=== PATIENT | female | born 1975 | race Caucasian/White ===

== ENCOUNTER 2018-04-29 19:56 | Emergency (ER) | payer BC ==
[2018-04-29 20:04] VITALS: BP 138/94; PULSE 81; TEMP 97.6; BMI 28.7
--- NOTE | 2018-04-29 20:27 | PDOC ---
History of Present Illness - General History Source: Patient Exam Limitations: No Limitations - History of Present Illness Initial Comments: 04/29/18 20:24 A portion of this note was documented by scribe services under my direction. I have reviewed the details of the note, within reason, and agree with the documentation with the following case summary and management plan written by me. Patient treated in the ED. Nursing notes are reviewed and incorporated into the medical decision-making. Vital signs reviewed. Procedure note Laceration was cleaned with peroxide and closed with Dermabond patient tolerated well <RadhaHosonidoheatherMary Alicechristophmarielleheather I - Last Filed: 04/29/18 20:24> - General History Source: Patient Exam Limitations: No Limitations - History of Present Illness Initial Comments: 04/29/18 20:50 The patient is a 43 year old female with no significant PMH who presents to the emergency department with a right index finger laceration since earlier this morning. The patient reports that she was using her kitchen knife this morning at about 11am when she accidentally sliced her finger. The patient reports that she cleaned the site and put gauze and a band aide but states that her lac kept opening and bleeding. The patient denies any weakness, numbness or tingling sensation . she denies any other symptoms or complaints. PAST MEDICAL HISTORY: no significant history PAST SURGICAL HISTORY: no significant history FAMILY HISTORY: no pertinent history SOCIAL HISTORY: Pt lives with family and is employed. MEDICATIONS: reviewed ALLERGIES: As per nursing notes General: No fevers or chills, no weakness, no weight loss HEENT: No change in vision. No sore throat,. No ear pain CardioVascular: No chest pain or shortness of breath Respiratory:No cough, or wheezing. Gastrointestinal: no nausea, vomiting, diarrhea or constipation, No rectal bleeding Genitourinary: No dysuria, hematuria, or frequency Musculoskeletal:(+)right finger laceration. No joint or muscle pain or swelling Neurologic: No headache, vertigo, dizziness or loss of consciousness Psychiatric: nor depression Skin: No rashes or easy bruising Endocrine: no increased thirst or abnormal weight change Allergic: no skin or latex allergy All other systems reviewed and normal GENERAL: The patient is awake, alert, and fully oriented, in no acute distress. HEAD: Normal with no signs of trauma. EYES: Pupils equal, round and reactive to light, extraocular movements intact, sclera anicteric, conjunctiva clear. EXTREMITIES: (+)superficial 1.5 cm lac of the lateral aspect of middle phalanx of right index finger. No active bleeding. Neurovascular intact. Normal range of motion, no edema. NEUROLOGICAL: Normal speech, normal gait. PSYCH: Normal mood, normal affect. SKIN: Warm, Dry, normal turgor, no rashes or lesions noted. <Jude Mcgrath - Last Filed: 04/29/18 20:50> - General Chief Complaint: Laceration Stated Complaint: RIGHT INDEX LACERATION Time Seen by Provider: 04/29/18 20:00 Past History - Past Medical History COPD: No Other medical history: Pt denies - Suicide/Smoking/Psychosocial Hx Smoking History: Never smoked Have you smoked in the past 12 months: No Information on smoking cessation initiated: No Hx Alcohol Use: No Drug/Substance Use Hx: No <Denzel Courtney I - Last Filed: 04/29/18 20:24> <Jude Mcgrath - Last Filed: 04/29/18 20:50> - Past Medical History Allergies/Adverse Reactions: Allergies Allergy/AdvReac Type Severity Reaction Status Date / Time Penicillins Allergy Severe Hives Verified 04/29/18 19:58 Home Medications: Ambulatory Orders NK [No Known Home Medication] 04/29/18 *Physical Exam - Vital Signs Last Vital Signs Temp Pulse Resp BP Pulse Ox 97.6 F 81 18 138/94 97 04/29/18 19:58 04/29/18 19:58 04/29/18 19:58 04/29/18 19:58 04/29/18 19:58 <Denzel Courtney I - Last Filed: 04/29/18 20:24> - Vital Signs Last Vital Signs Temp Pulse Resp BP Pulse Ox 97.6 F 81 18 138/94 97 04/29/18 19:58 04/29/18 19:58 04/29/18 19:58 04/29/18 19:58 04/29/18 19:58 <Jude Mcgrath - Last Filed: 04/29/18 20:50> Moderate Sedation - Procedure Monitoring Vital Signs: Procedure Monitoring Vital Signs Temperature 97.6 F 04/29/18 19:58 Pulse Rate 81 03/20/19 19:58 Respiratory Rate 18 04/29/18 19:58 Blood Pressure 138/94 04/29/18 19:58 O2 Sat by Pulse Oximetry (%) 97 04/29/18 19:58 <Denzel Courtney I - Last Filed: 04/29/18 20:24> - Procedure Monitoring Vital Signs: Procedure Monitoring Vital Signs Temperature 97.6 F 04/29/18 19:58 Pulse Rate 81 04/29/18 19:58 Respiratory Rate 18 04/29/18 19:58 Blood Pressure 138/94 04/29/18 19:58 O2 Sat by Pulse Oximetry (%) 97 04/29/18 19:58 <Jude Mcgrath - Last Filed: 04/29/18 20:50> *DC/Admit/Observation/Transfer - Discharge Dispostion Decision to Admit order: No <Denzel Courtney I - Last Filed: 04/29/18 20:24> - Attestations Scribe Attestion: 04/29/18 20:50 Documentation prepared by Jude Mcgrath, acting as medical coding specialist for Denzel Courtney MD. <Jude Mcgrath - Last Filed: 04/29/18 20:50> Diagnosis at time of Disposition: Laceration of right index finger Qualifiers: Encounter type: initial encounter Damage to nail status: without damage Foreign body presence: without foreign body Qualified Code(s): S61.210A - Laceration without foreign body of right index finger without damage to nail, initial encounter - Discharge Dispostion Disposition: HOME - Patient Instructions Printed Discharge Instructions: DI for Laceration Repair, DI for Laceration Repair With Dermabond Additional Instructions: Read over and follow Dermabond instructions. Return to the emergency department immediately with ANY new, persistent or worsening symptoms. Continue any medications as previously prescribed by your physician. You should follow up with your primary doctor as soon as possible regarding today's emergency department visit. . Please make sure your doctor reviews the results of your emergency evaluation. Thank you for coming to the Emergency Department today for your care. It was a pleasure to see you today. Please note that your evaluation is INCOMPLETE until you follow-up with your doctor.
[2018-04-29] MEDS ORDERED: DIPHTH,PERTUSS(ACELL),TET 0.5 ML DISP.SYRIN IM ONE ×2 (20:47→20:49)
== END 2018-04-29 21:07 | disposition home or self-care (01) ==
LOC: FER 19:56
PROC: 0HQFXZZ Repair Right Hand Skin, External Approach (ICD-10-PCS; principal; 2018-04-29)
DX: S61.210A Laceration without foreign body of right index finger without damage to nail, initial encounter (principal); W26.0XXA Contact with knife, initial encounter; Y93.G1 Activity, food preparation and clean up; Y92.89 Other specified places as the place of occurrence of the external cause
CPT/HCPCS: 90715; 99281-25